=== PATIENT | male | born 1955 ===

== ENCOUNTER 2024-12-30 13:14 | Outpatient (CLI) | payer OTHER | END 2024-12-30 13:26 | disposition home or self-care (01) | LOC: TOM 13:14 | PROVIDERS: ATTEND Urology | DX: N20.0 Calculus of kidney (principal) ==

== ENCOUNTER 2025-03-24 11:33 | Outpatient (CLI) | payer OTHER | END 2025-03-24 11:38 | disposition home or self-care (01) | LOC: RAD 11:33 | PROVIDERS: ATTEND Urology | DX: N20.0 Calculus of kidney (principal) ==